=== PATIENT | male | born 1950 | race American Indian/Alaskan Native ===

== ENCOUNTER 2018-12-03 11:36 | Outpatient (CLI) | payer MEDICARE, OTHER ==
--- NOTE | 2018-12-03 14:33 | XRAY Report ---
Reason: SHORTNESS OF BREATH Procedure Date: 12/03/2018 Accession Number: [id number] / [id number] Procedure: XR - Chest 2 View X-Ray CPT Code: 62893 FULL RESULT: EXAM: CHEST RADIOGRAPHY EXAM DATE: 12/03/2018 11:51 AM. CLINICAL HISTORY: SHORTNESS OF BREATH. COMPARISON: None. TECHNIQUE: 2 views. FINDINGS: Lungs/Pleura: No focal opacities evident. No pleural effusion. No pneumothorax. Normal volumes. Mediastinum: Heart and mediastinal contours are unremarkable. Other: None. IMPRESSION: No focal consolidation. [facility]
== END 2018-12-03 11:37 | disposition home or self-care (01) ==
LOC: DI 11:36
PROVIDERS: ATTEND Physician Assistant
DX: R06.02 Shortness of breath (principal)
CPT/HCPCS: 71046